=== PATIENT | male | born 1990 | race Caucasian/White ===

== ENCOUNTER 2019-01-04 00:27 | Outpatient (CLI) | payer OTHER, SELFPAY ==
--- NOTE | 2019-01-04 12:15 | DI.US_ITS ---
SYMPTOMS/DIAGNOSIS: SEVERAL SMALL 2-4 MM TESTICULAR MASSES SCROTUM AND SHAFT OF PENIS, PAINLESS SCROTAL ULTRASOUND: Scrotal ultrasound was performed according to the usual protocol. The testes are unremarkable in appearance. Epididymides appear intact with incidental small spermatocele or epididymal cyst bilaterally. Small bilateral hydroceles noted. The patient reportedly has palpable masses and at least one of these appears to correspond to a scrotal morgan on the left which is a calcified small mass. An additional small calcified mass is noted inferior to the scrotum on the right, this might be associated with the vas deferens but is not conclusively associated with a defined anatomic structure. CONCLUSION: No evidence of testicular mass. Small calcified mass identified consistent with scrotal morgan, no suspicious mass identified.
== END 2019-01-04 00:47 ==
PROVIDERS: Visit Provider Family Medicine
DX: N50.9 Disorder of male genital organs, unspecified (principal); N50.89 Other specified disorders of the male genital organs
CPT/HCPCS: 76870